=== PATIENT | male | born 1970 | race Caucasian/White ===

== ENCOUNTER → 2016-12-22 | Outpatient (CLI) | payer MEDICARE ==
--- NOTE | 2016-12-22 13:02 | P.PN ---
Progress Note - Text Patient returns for followup for chronic back pain without significant radiation to legs. Patient underwent bilateral lumbar RFA in May 2016, which provided some relief for 6-7 months' interval. Patient continues on [place] medications for pain with good relief from his PCP. Patient is also on Coumadin for A-fib. Patient denies adverse drug effects from medications. Today, pt denies new-onset weakness, bowel/bladder incontinence, or any other signs or symptoms of cauda equina syndrome. There are no signs of acute intoxication, and no indications of medication diversion or overuse. In addition to above, 13-point review of systems is also negative for chest pain , shortness of breath, changes in vision, changes in hearing, new onset weakness , abdominal pain, diarrhea, extreme fatigue, malaise, fever, skin changes, homicidal or suicidal ideation, or bowel or bladder incontinence. Vital Signs: Reviewed in EMR Gen: WDWN, AAOx3, NAD HEENT: NCAT, EOMI, hearing grossly normal Pulm: resp unlabored Abd: soft, NT, ND Neck: supple, trachea midline ROM in flexion lumbar spine: reduced ROM in extension lumbar spine: reduced Lumbar paravertebral tenderness: + Facet loading: ++ bilateral SI joint tenderness: + bilateral Jeffery's test: + bilateral Neuro: CN II-XII grossly intact, muscle strength lower extremities PRESERVED Imaging: Reviewed in EMR Assessment: 1. lumbar DDD 2. lumbar spondylosis without myelopathy 3. chronic pain syndrome Plan: 1. Explanation: Opioid and psychological risk scores were reviewed. Diagnoses , prognoses, and multiple treatment options including but not limited to physical therapy, interventional therapies, adjuvant medical therapies, narcotic medication therapies, and surgery were discussed with the patient and all questions were answered to the patient's satisfaction. 2. Opioid agreement: no opioids prescribed today 3. Counseling: The patient was counseled extensively on BODY MASS INDEX, EXERCISE. Specifically, the patient was instructed regarding the importance of obesity, and exercise in the context of both chronic pain and overall health. 4. Procedures: right vs. left lumbar RFA 5. Consultations: None 6. Investigations: None 7. Medications: none prescribed 8. Disposition: f/u for procedure as scheduled, patient must be off Coumadin and have INR checked ahead of injection PQRS measures: 1-Patient's medications are documented in the chart. 2-Tobacco use is negative 3-Patient has not had a pneumococcal vaccine. 4-Advanced care planning discussed, patient unable to give. 5-Opioid contract NOT signed with the patient as we do not prescribe him opioids. 6-Pain positive, follow-up visit or procedure scheduled 7-Patient's blood pressure measured and documented, and patient will follow up with the primary care due to hypertension. 8-Patient's weight was measured, and body mass index well ABOVE the normal limits, and counseling was done. Patient instructed to follow up with PCP. 9-Patient WAS NOT identified as an unhealthy alcohol user.
[2016-12-22 13:12] VITALS: BP 150/90; PULSE 62; RESP 18; TEMP 97.8
== END | disposition home or self-care (01) ==
LOC: PNWHC3 12:20
PROVIDERS: ATTEND Anesthesiology
DX: M51.36 Other intervertebral disc degeneration, lumbar region (principal); M47.816 Spondylosis without myelopathy or radiculopathy, lumbar region; G89.4 Chronic pain syndrome; I48.91 Unspecified atrial fibrillation; Z79.01 Long term (current) use of anticoagulants; Z79.899 Other long term (current) drug therapy; I10 Essential (primary) hypertension
CPT/HCPCS: 99211

== ENCOUNTER 2017-02-02 06:51 | Day surgery (SDC) | payer MEDICARE ==
[2017-02-01 10:28] VITALS: BMI 48.2
[~2017-02-02 06:51] MED LIST: LACTATED RINGERS 1,000 ML IV SCH
[2017-02-02] MEDS ORDERED: LACTATED RINGERS 1,000 ML IV SCH (07:00)
[2017-02-02 07:52] VITALS: TEMP 97.7
[2017-02-02] MEDS ORDERED: LIDOCAINE 1% 20 ML VIAL (10MG/ML) FOR IV START SQ ONE (08:04)
[2017-02-02 08:26] LABS: INR 1.2 (<1.1)
[2017-02-02] MEDS ORDERED: fentaNYL (PF) 50 MCG/ML 2 ML AMP ONE (08:33)
[2017-02-02] MEDS ORDERED: TRIAMCINOLONE ACETONIDE 40 MG/ML 1 ML VIAL ONE (08:33)
[2017-02-02] MEDS ORDERED: MIDAZOLAM 2 MG/2 ML VIAL ONE (08:33)
[2017-02-02] MEDS ORDERED: BUPIVACAINE (PF) 0.5% 30 ML VIAL ONE (08:33)
--- NOTE | 2017-02-02 09:08 | P.PCN ---
Date of Procedure: 02/02/17 Procedure(s) Performed: PREOPERATIVE DIAGNOSIS: 1-Lumbar Spondylosis with Facet Arthropathy without myelopathy. POSTOPERATIVE DIAGNOSIS: 1- Lumbar Spondylosis with Facet Arthropathy without myelopathy. PROCEDURES : Right Radiofrequency thermocoagulation L2-3 , L3-L4, L4-L5, and L5-S1 medial branch, with fluoroscopic guidance ANESTHESIA: IV sedation with versed 2 mg and fentaneyl 100 mcg and local infiltration with lidocaine 1% 6 ml EBL: Minimal PROCEDURE INDICATION: The patient with low back pain secondary to lumbar facet arthropathy who had more than 50% relief of her pain with previous diagnostic lumbar medial branch block with bupivacaine. PROCEDURE DESCRIPTION / TECHNIQUE: The patient was seen and identified in the preoperative area. Risks, benefits, complications, including but not limited to risk of infection ,bleeding , allergic reactions to the medications and no complete pain releife , and alternatives were discussed with the patient, the patient agreed to proceed with the procedure and signed the consent. IV was started. Vital signs remained stable throughout the procedure. Patient was taken to the OR and time out was completed. The patient was placed in the prone position on the procedure table. The lumber area was prepped and draped in the usual sterile fashion. . Vital signs were closely monitored during the procedure .IV sedation was used during the procedure to decrease patients anxiety. Using AP and then oblique fluoroscopy, the ``eye of the Hugo dog corresponding to the connection between the superior and transverse articular processes of right L2 , L3, L4, and L5 were identified, marked, and localized with 1% lidocaine. Subsequently, a 18 [id number] radiofrequency cannula with a 10-mm active tip was advanced guided by fluoroscopy to each of the ``eyes of the Hugo dog at right L2 ,L3, L4, and L5. Each site then underwent sensory testing at 50 Hz and 0 to 1 volt and motor testing at 2.5 Hz and 0 to 3 volt with local stimulation, but no radicular symptoms down the legs. Thereafter the right L2-3 , L3-4, L4-5, and L5-S1 sites underwent radiofrequency thermocoagulation at 80 degrees celsius for 90 seconds after injecting 0.5 ml of PF lidocaine 1%. then After the thermocoagulation done , 1 ml of the block solution containing Kenalog 40 mg and 3 ml of marain 0.5% was injected at the right L2-3 , L3-4 , L4-5 , and L5-S1, levels after negative aspiration of CSF and blood and with no paresthesias. Cannulas were retracted while injecting lidocaine 1% until the needle is out. At the end of the procedure, the skin was cleansed and bandages were applied. COMPLICATIONS: No acute complications. DISPOSITION / PLANS: The patient was placed in a supine position and transferred to the recovery area in a stable condition for observation and was discharged from the recovery room after meeting discharge criteria. Home discharge instructions given to the patient by the staff. The patient was reexamined prior to discharge. The patient will schedule a follow up in the clinic in 2-4 weeks.
--- NOTE | 2017-02-02 09:15 | FL ---
EXAMINATION TYPE: FL guided pain mgmt statistic DATE OF EXAM: 02/02/2017 9:08 AM HISTORY: Pain 30sec fluoro time, 3 images scanned.
[2017-02-02] MEDS ORDERED: IV FLUID CONTINUATION 700 ML IV ONE (09:26)
[2017-02-02 09:29] VITALS: PULSE 74; RESP 18
[2017-02-02 09:38] VITALS: BP 113/69
== END 2017-02-02 10:11 | disposition home or self-care (01) ==
LOC: ORPAIN 06:51
PROVIDERS: ATTEND Specialist
DX: M47.816 Spondylosis without myelopathy or radiculopathy, lumbar region (principal); M46.96 Unspecified inflammatory spondylopathy, lumbar region; I11.0 Hypertensive heart disease with heart failure; I50.9 Heart failure, unspecified; I48.91 Unspecified atrial fibrillation; J45.909 Unspecified asthma, uncomplicated; G47.33 Obstructive sleep apnea (adult) (pediatric); Z88.5 Allergy status to narcotic agent; Z88.1 Allergy status to other antibiotic agents; Z88.8 Allergy status to other drugs, medicaments and biological substances; Z86.711 Personal history of pulmonary embolism
CPT/HCPCS: 85610; 64635; 64636 ×3; 99152; 99153; J2250; J3301; J3010

== ENCOUNTER 2017-03-05 10:06 | Day surgery (SDC) | payer MEDICARE ==
[2017-03-04 13:38] VITALS: BMI 47.5
[2017-03-05] MEDS ORDERED: LIDOCAINE 1% 20 ML VIAL (10MG/ML) FOR IV START INTRADERMA ONE (10:40)
[2017-03-05 10:42] VITALS: TEMP 97.6
[2017-03-05 11:07] LABS: INR 1.1 (<1.1)
[2017-03-05 11:08] LABS: Prothrombin Time 11.2 sec (9.0-12.0)
[2017-03-05] MEDS ORDERED: TRIAMCINOLONE ACETONIDE 40 MG/ML 1 ML VIAL ONE (11:38)
[2017-03-05] MEDS ORDERED: fentaNYL (PF) 50 MCG/ML 2 ML AMP ONE (11:38)
[2017-03-05] MEDS ORDERED: BUPIVACAINE (PF) 0.5% 30 ML VIAL ONE (11:38)
[2017-03-05] MEDS ORDERED: MIDAZOLAM 2 MG/2 ML VIAL ONE (11:38)
--- NOTE | 2017-03-05 12:14 | P.PCN ---
Date of Procedure: 03/05/17 Procedure(s) Performed: PREOPERATIVE DIAGNOSIS: 1-Lumbar Spondylosis with Facet Arthropathy without myelopathy. 2- Lumber degenerative disc disease POSTOPERATIVE DIAGNOSIS: 1- Lumbar Spondylosis with Facet Arthropathy without myelopathy. 2- Lumber degenerative disc disease. PROCEDURES : Left Radiofrequency thermocoagulation, L2-3 , L3-L4, L4-L5, and L5 -S1 medial branch, with fluoroscopic guidance ANESTHESIA: IV sedation with versed 2 mg and fentaneyl 50 mcg and local infiltration with lidocaine 1% 6 ml EBL: Minimal PROCEDURE INDICATION: The patient with low back pain secondary to lumbar facet arthropathy who had more than 50% relief of her pain with previous diagnostic lumbar medial branch block with bupivacaine. PROCEDURE DESCRIPTION / TECHNIQUE: The patient was seen and identified in the preoperative area. Risks, benefits, complications, including but not limited to risk of infection ,bleeding , allergic reactions to the medications and no complete pain releife , and alternatives were discussed with the patient, the patient agreed to proceed with the procedure and signed the consent. IV was started. Vital signs remained stable throughout the procedure. Patient was taken to the OR and time out was completed. The patient was placed in the prone position on the procedure table. The lumber area was prepped and draped in the usual sterile fashion. . Vital signs were closely monitored during the procedure .IV sedation was used during the procedure to decrease patients anxiety. Using AP and then oblique fluoroscopy, the ``eye of the Hugo dog corresponding to the connection between the superior and transverse articular processes of Left L2, L3, L4, and L5 were identified, marked, and localized with 1% lidocaine. Subsequently, a 18 [id number] radiofrequency cannula with a 10-mm active tip was advanced guided by fluoroscopy to each of the ``eyes of the Hugo dog at Left L2 , L3, L4, and L5. Each site then underwent sensory testing at 50 Hz and 0 to 1 volt and motor testing at 2.5 Hz and 0 to 3 volt with local stimulation, but no radicular symptoms down the legs. Thereafter the Left L2-3 , L3-4, L4-5, and L5-S1 sites underwent radiofrequency thermocoagulation at 80 degrees celsius for 90 seconds after injecting 0.5 ml of PF lidocaine 1%. then After the thermocoagulation done , 1 ml of the block solution containing Kenalog 40 mg and 3 ml of marain 0.5% was injected at the Left L2-3 , L3-4 , L4-5 , and L5-S1, levels after negative aspiration of CSF and blood and with no paresthesias. Cannulas were retracted while injecting lidocaine 1% until the needle is out. At the end of the procedure, the skin was cleansed and bandages were applied. COMPLICATIONS: No acute complications. DISPOSITION / PLANS: The patient was placed in a supine position and transferred to the recovery area in a stable condition for observation and was discharged from the recovery room after meeting discharge criteria. Home discharge instructions given to the patient by the staff. The patient was reexamined prior to discharge. The patient will schedule a follow up in the clinic in 2-4 weeks.
[2017-03-05] MEDS ORDERED: IV FLUID CONTINUATION 1,000 ML IV ONE (12:19)
[2017-03-05 12:39] VITALS: BP 143/70; PULSE 66; RESP 18
--- NOTE | 2017-03-05 12:41 | FL ---
EXAMINATION TYPE: FL guided pain mgmt statistic DATE OF EXAM: 03/05/2017 12:14 PM HISTORY: Pain 32 sec fluoro
== END 2017-03-05 12:56 | disposition home or self-care (01) ==
LOC: ORPAIN 10:06
PROVIDERS: ATTEND Specialist
DX: M47.816 Spondylosis without myelopathy or radiculopathy, lumbar region (principal); M46.96 Unspecified inflammatory spondylopathy, lumbar region; M51.36 Other intervertebral disc degeneration, lumbar region; Z88.5 Allergy status to narcotic agent; Z88.8 Allergy status to other drugs, medicaments and biological substances
CPT/HCPCS: 85610; 64635; 64636 ×3; 99152; 99153; J2250; J3301; J3010

== ENCOUNTER 2017-10-05 08:13 | Observation (INO) | payer MEDICARE ==
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
[2017-10-05] MEDS ORDERED: ASPIRIN 81 MG PO STA (08:54)
[2017-10-05] MEDS ORDERED: NITROGLYCERIN SL TABS 0.4 MG TAB SUBLINGUAL PRN (08:54)
[2017-10-05] MEDS: METOPROLOL TARTRATE 25 MG TAB PO SCH ×2 (09:16→22:51)
[2017-10-05] MEDS: ATORVASTATIN 80 MG TAB PO SCH (09:16)
[2017-10-05] MEDS: MORPHINE SULFATE 5 MG/ML SYRINGE IV PRN (09:17)
[2017-10-05 11:07] LABS: Creatine Kinase 78 U/L (55-170)
[2017-10-05 11:17] LABS: Creatine Kinase MB 0.7 ng/mL (0.0-2.4); Troponin I <0.012 ng/mL (0.000-0.034)
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
[2017-10-05] MEDS ORDERED: ALBUTEROL NEBULIZED 2.5 MG/3 ML INHALATION PRN ×2 (18:14)
[2017-10-05 18:18] LABS: Creatine Kinase 65 U/L (55-170)
[2017-10-05 18:31] LABS: Creatine Kinase MB 0.6 ng/mL (0.0-2.4); Troponin I <0.012 ng/mL (0.000-0.034)
[2017-10-05 19:19] LABS: INR 2.4 (<1.2); Prothrombin Time 21.2 sec (9.0-12.0)
[2017-10-05] MEDS: SYMBICORT 160-4.5 MCG INHALER INHALATION SCH (20:37)
[2017-10-05] MEDS ORDERED: HYDROcodone/APAP 10-325MG 1 EACH TAB PO SCH (22:00)
[2017-10-05] MEDS: FUROSEMIDE 20 MG TAB PO SCH (22:51)
[2017-10-05] MEDS: FAMOTIDINE 20 MG TAB PO SCH (22:51)
[2017-10-05] MEDS: FLUTICASONE 50MCG/SPRAY NASAL 16GM NASAL SCH (22:51)
[2017-10-06] MEDS: MORPHINE SULFATE 5 MG/ML SYRINGE IV PRN (00:29)
[2017-10-06] MEDS: METOPROLOL TARTRATE 25 MG TAB PO SCH (00:31)
[2017-10-06] MEDS: FLUTICASONE 50MCG/SPRAY NASAL 16GM NASAL SCH (00:34)
[2017-10-06] MEDS: FAMOTIDINE 20 MG TAB PO SCH (00:34)
[2017-10-06] MEDS: FUROSEMIDE 20 MG TAB PO SCH ×2 (06:02→08:42)
[2017-10-06 07:00] LABS: Cholesterol 146 mg/dL (<200); HDL Cholesterol 38 mg/dL (40-60)
[2017-10-06] MEDS ORDERED: POTASSIUM CHLORIDE ER 20 MEQ TAB.ER PO SCH (07:30)
[2017-10-06 07:54] LABS: Prothrombin Time 18.1 sec (9.0-12.0)
[2017-10-06] MEDS: SYMBICORT 160-4.5 MCG INHALER INHALATION SCH (08:22)
[2017-10-06 08:35] VITALS: BP 156/79; PULSE 83; RESP 16; TEMP 97.4
[2017-10-06] MEDS: ATORVASTATIN 80 MG TAB PO SCH (08:42)
[2017-10-06] MEDS ORDERED: LISINOPRIL 20 MG TAB PO SCH (09:00)
[2017-10-06] MEDS ORDERED: DIGOXIN 250 MCG TAB PO SCH (09:00)
[2017-10-06] MEDS ORDERED: LORATADINE 10 MG TAB PO SCH (09:00)
[2017-10-06] MEDS ORDERED: DILTIAZEM CD 180 MG CAP.ER.24H PO SCH (09:00)
[2017-10-06] MEDS ORDERED: ASPIRIN 325 MG TAB PO SCH (09:00)
[2017-10-06] MEDS ORDERED: WARFARIN 2 MG TAB PO SCH (09:00)
--- NOTE | 2017-10-06 11:13 | P.PN ---
Subjective This is a 47-year-old male past medical history significant for paroxysmal atrial fibrillation on long-term anticoagulation with Coumadin, heart failure unknown type, COPD, dyslipidemia, hypertension, asthma, sleep apnea, pacemaker and gastroesophageal reflux disease. He follows with a plodding operator out of [place], Dr. Herron. He denies history of CAD and states he had a negative catheterization earlier this jahaira. We have been asked to see him in consultation for complaints of chest pain. He states he woke up around 0500 this morning with palpitations, chest pain, dizziness, nausea, diaphoresis and shortness of breath. The pain radiated to his left arm and shoulder momentarily also. He states these symptoms lasted approximately 1 hour and resolved on their own with no specific alleviating factors. He presented to [facility] and was transferred here for cardiac evaluation. EKG reveals a paced rhythm with underlying atrial fibrillation with controlled ventricular response. Laboratory data from [place] was reviewed, cardiac enzymes are negative x2 thus far. Current cardiac medications include coumdain, potassium 20 MEQ daily, lopressor 100 mg BID, lovastatin 40 mg daily, lisinopril 20 mg daily, lasix 20 mg BID, diltiazem 180 mg daily and digoxin 250 ncg daily. 10/06/2017 On follow up today, Mr. Spear is seen sitting up in bed in no acute distress. He denies any further episodes of chest pain or palpitations. Telemetry tracings are unremarkable and negative for an acute arrhythmia. Records have been reviewed from his primary plodding operator. He had an echocardiogram performed April 2017 that revealed a decreased LV function with EF 45% with mild MR and TR. He underwent cardiac catheterization in October 2015 that revealed widely patent coronary arteries. His official diagnosis is non-ischemic dilated cardiomyopathy. Objective - Vital Signs Vital signs: Vital Signs Temp 97.4 F L 10/06/17 08:00 Pulse 83 10/06/17 08:00 Resp 16 10/06/17 08:00 BP 156/79 10/06/17 08:00 Pulse Ox 98 10/06/17 08:23 Intake & Output 10/05/17 10/06/17 10/06/17 18:59 06:59 18:59 Intake Total 360 236 Balance 360 236 Weight 149.5 kg Intake: Oral 360 236 Other: Voiding Method Toilet Toilet Toilet # Voids 1 0 - Exam GENERAL: Well-appearing, well-nourished and in no acute distress. Obese. NECK: Supple without JVD or thyromegaly. LUNGS: Breath sounds clear to auscultation bilaterally. Respiration equal and unlabored. No wheezes, rales or rhonchi. HEART: Regular rate and rhythm with systolic ejection murmur at the base, no rubs or gallops. S1 and S2 heard. EXTREMITIES: Normal range of motion, no edema. No clubbing or cyanosis. Peripheral pulses intact and strong. - Labs Labs: Abnormal Lab Results - Last 24 Hours (Table) 10/05/17 10/06/17 10/06/17 Range/Units 10:21 06:10 06:10 PT 21.2 H 18.1 H (9.0-12.0) sec INR 2.4 H 2.0 H (<1.2) HDL Cholesterol 38 L (40-60) mg/dL Assessment and Plan Assessment: ASSESSMENT 1. Chest pain with palpitations, atypical for an acute coronary event 2. History of persistent atrial fibrillation on long-term anticoagulation 3. Pacemaker dependent 4. Heart failure with decreased EF, 45% 5. COPD 6. Sleep apnea 7. Diabetes mellitus 8. Hypertension 9. Non-ischemic dilated cardiomyopathy PLAN An acute coronary event has been ruled out with negative cardiac enzymes. From a cardiac perspective Mr. Spear is stable. He can follow up with his primary plodding operator in 2-3 weeks. Nurse Practitioner note has been reviewed, I agree with a documented findings and plan of care. Patient was seen and examined.
[2017-10-06] MEDS ORDERED: HYDROcodone/APAP 10-325MG 1 EACH TAB PO PRN (12:02)
[2017-10-06] MEDS ORDERED: METOPROLOL TARTRATE 50 MG TAB PO SCH (21:00)
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
[2017-10-07] MEDS ORDERED: ATORVASTATIN 10 MG TAB PO SCH (21:00)
--- NOTE | 2017-10-20 18:14 | CDI ---
Dr. Monge, Please specificy if compression fracture of the L2-3 and L4 is traumatic, pathological or non-traumatic. Also, please specifiy if this is an initial episode of care of subsequent encounter. Thank you, Solange Stringer give to dr nerusu. Saleem PIERCE
--- NOTE | 2017-11-03 09:19 | CDI ---
Outpatient Documentation Clarification Form Date: 11-03-17 CDS/Environmental Scientist Name: Sabrina Fontenot Phone: If you have question, contact Isamar Ventura, Construction Economist at [phone] M-F 8:30 am to 6pm. Patient Name: Brian Spear Admit Date:10-05-17 Discharge Date: 10-06-17 ATTENTION: The Clinical Documentation Specialists (CDI) and [facility] Coding Staff appreciate your assistance in clarifying documentation. Please respond to the clarification below the line at the bottom and electronically sign. The CDI & [facility] Coding staff will review the response and follow-up if needed. Please note: Queries are made part of the Legal Health Record. If you have any questions, please contact the author of this message via ITS or call the Construction Economist. Dr. Quinonez, Please specificy if compression fracture of the L2-3 and L4 is traumatic, pathological or non-traumatic. Also, please specifiy if this is an initial episode of care of subsequent encounter. Thank you, Sabrina Fontenot SENIOR PROCUREMENT SPECIALIST compression fracture of the L2-3 and L4- etiology unknown. No imaging available. MTDD
== END 2017-10-06 14:49 | disposition home or self-care (01) ==
LOC: EC 08:13 → 3OBS 08:54
PROVIDERS: ADMIT Hospitalist; ATTEND Hospitalist
DX: I48.2 Chronic atrial fibrillation (principal); I48.1 Persistent atrial fibrillation; I48.0 Paroxysmal atrial fibrillation; I20.9 Angina pectoris, unspecified; Z68.41 Body mass index [BMI] 40.0-44.9, adult; E66.01 Morbid (severe) obesity due to excess calories; Z95.0 Presence of cardiac pacemaker; I50.22 Chronic systolic (congestive) heart failure; I11.0 Hypertensive heart disease with heart failure; I42.0 Dilated cardiomyopathy; J44.9 Chronic obstructive pulmonary disease, unspecified; G47.33 Obstructive sleep apnea (adult) (pediatric); Z99.89 Dependence on other enabling machines and devices; E11.40 Type 2 diabetes mellitus with diabetic neuropathy, unspecified; E78.5 Hyperlipidemia, unspecified; G89.29 Other chronic pain; M54.5 Low back pain; Z86.711 Personal history of pulmonary embolism; K21.9 Gastro-esophageal reflux disease without esophagitis; F41.9 Anxiety disorder, unspecified; Z79.01 Long term (current) use of anticoagulants; Z79.899 Other long term (current) drug therapy; Z88.1 Allergy status to other antibiotic agents; Z88.5 Allergy status to narcotic agent; Z88.8 Allergy status to other drugs, medicaments and biological substances; Z79.51 Long term (current) use of inhaled steroids; M19.90 Unspecified osteoarthritis, unspecified site; Z86.14 Personal history of Methicillin resistant Staphylococcus aureus infection; Z79.891 Long term (current) use of opiate analgesic; Z82.49 Family history of ischemic heart disease and other diseases of the circulatory system
CPT/HCPCS: 93005 ×2; 96376; 96374; 99285; 94640 ×3; 94760; 80061; 82550; 82553; 80162; 84484; 85610 ×2; G0378 ×2; J2274 ×2

== ENCOUNTER 2021-04-30 10:34 | Day surgery (SDC) | payer MEDICARE ==
[~2021-04-30 10:34] MED LIST changes: +ALBUTEROL NEB (CONC) 2.5 MG/0.5 ML INHALATION ONE; +LIDOCAINE 1% (10MG/ML) FOR IV START INTRADERMA PRN; +LIDOCAINE 2% (PF) 20 MG/ML 5 ML VIAL INHALATION ONE; +LIDOCAINE VISCOUS 300 MG/15 ML CUP MUCOUS MEM ONE
[2021-04-30 12:27] LABS: Glucose,Whole Blood 120 mg/dL (75-99)
[2021-04-30 12:40] VITALS: TEMP 97.1
[2021-04-30] MEDS ORDERED: LIDOCAINE 1% INJ 10MG/ML (20 ML MDV) ONE (13:12)
[2021-04-30] MEDS ORDERED: PROPOFOL 10 MG/ML 20 ML VIAL IV ONE (13:12)
[2021-04-30] MEDS ORDERED: KETAMINE 10 MG/ML 20 ML VIAL ONE (13:12)
[2021-04-30] MEDS ORDERED: MIDAZOLAM 2 MG/2 ML VIAL ONE (13:12)
--- NOTE | 2021-04-30 13:42 | P.PCN ---
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 Note that the patient had prolonged ventilator dependent respiratory failure and tracheostomy tube insertion which was the culprit for his tracheostenosis The patient presented to the office with of worsening shortness of breath and he was concerned that he was having a purulent tracheal stenosis. For that reason, the patient was scheduled to undergo this bronchoscopy and upper airway inspection. The patient was given a combination of propofol and ketamine for sedation. After achieving adequate sedation, the flexible bronchoscope was inse rted through the left nostril was advanced into the upper airway. Examination of the pharynx included oropharynx, and this was within normal limits. Following that, the bronchoscope was lasted larynx. There was dynamic collapse stability of the laryngeal airway along with adipose tissue buildup circumferentially throughout the laryngeal wall consistent with a diagnosis of obstructive sleep apnea. Epiglottis was identified. Vallecula and arytenoids were within normal limits. Vocal cord function mobility was within normal limits with normal abduction and adduction. A total of 5 mL of 1% lidocaine was applied to the vocal cords and following that the bronchoscope was advanced into the subglottic tracheal area. The cricoid was not adequately visualized. The area immediately in the subglottic trachea was noted to be stenotic. There was a significant tracheal fibrotic band of tissue growing anteriorly between 9 PM and 3 AM and this was causing some anatomic distortion and tortuosity of the subglottic trachea. The stenosis was estimated to be around 10 mm in size. I was easily able to push my bronchoscope through the stenotic segment knowing that my bronchoscope diameter was 5 mm in size. At that point and the bronchoscope through the stenotic segment, the patient had no stridor. He was able to breathe comfortably. I estimated his airway to be around 10 mm in size at least. There was limited tracheobronchomalacia throughout the patient's airways and this was noted as the patient dynamic collapse of the airways with inspiratory and expiratory maneuvers. Minimal respiratory secretions visualized. After reviewing an accurate examination of the upper airway, a video tape of the airway involving the upper trachea was taken and this will be shared with interventional pulmonology program at [facility]. The bronchoscope was removed and the patient was transferred to recovery in stable condition Postoperative diagnosis 1 non-critical subglottic tracheal stenosis 2 bronchomalacia. 3 previous history of tracheostomy 4 history of bronchial asthma 5 obstructive sleep apnea
[2021-04-30 14:05] VITALS: RESP 18
[2021-04-30 14:50] VITALS: BP 139/79; PULSE 81
== END 2021-04-30 15:25 | disposition home or self-care (01) ==
LOC: ORWHC2ENDO 10:34
PROVIDERS: ATTEND Internal Medicine Critical Care Medicine
DX: J39.8 Other specified diseases of upper respiratory tract (principal); G47.33 Obstructive sleep apnea (adult) (pediatric); E66.01 Morbid (severe) obesity due to excess calories; J98.09 Other diseases of bronchus, not elsewhere classified; Z88.6 Allergy status to analgesic agent; Z88.1 Allergy status to other antibiotic agents; Z88.8 Allergy status to other drugs, medicaments and biological substances; Z86.711 Personal history of pulmonary embolism; I50.20 Unspecified systolic (congestive) heart failure; I25.10 Atherosclerotic heart disease of native coronary artery without angina pectoris; Z95.0 Presence of cardiac pacemaker; Z86.718 Personal history of other venous thrombosis and embolism; J44.9 Chronic obstructive pulmonary disease, unspecified; J45.40 Moderate persistent asthma, uncomplicated; G89.29 Other chronic pain; I48.20 Chronic atrial fibrillation, unspecified; I11.0 Hypertensive heart disease with heart failure; I25.2 Old myocardial infarction; Z79.899 Other long term (current) drug therapy
CPT/HCPCS: 31622; J2250; J2001; J2704; 31624

== ENCOUNTER 2023-12-07 15:03 | Day surgery (SDC) | payer MEDICARE, OTHER ==
[~2023-12-07 15:03] MED LIST changes: -ALBUTEROL NEB (CONC) 2.5 MG/0.5 ML INHALATION ONE; -LACTATED RINGERS 1,000 ML IV SCH; -LIDOCAINE 1% (10MG/ML) FOR IV START INTRADERMA PRN; -LIDOCAINE 2% (PF) 20 MG/ML 5 ML VIAL INHALATION ONE; -LIDOCAINE VISCOUS 300 MG/15 ML CUP MUCOUS MEM ONE; +SODIUM CHLORIDE 0.9% 1,000 ML IV SCH
[2023-12-07] MEDS: SODIUM CHLORIDE 0.9% 500 ML 500 ML IV ONE (15:39)
[2023-12-07 15:59] LABS: Glucose,Whole Blood 205 mg/dL (70-110)
[2023-12-07] MEDS: INSULIN ASPART (NovoLOG) 100 UNIT/ML VIAL SQ ONE (16:03)
[2023-12-07 16:14] VITALS: BP 160/63; PULSE 61; RESP 18; TEMP 99
[2023-12-07 16:20] LABS: ALT 24 U/L (4-49); AST 23 U/L (17-59); African American GFR (CKD) >90 (>60 ml/min/1.73 sqM); Alkaline Phosphatase 117 U/L (38-126); Anion Gap 6 mmol/L; Blood Urea Nitrogen 20 mg/dL (9-20); Calcium 9.2 mg/dL (8.4-10.2); Carbon Dioxide 25 mmol/L (22-30); Chloride 107 mmol/L (98-107); Glucose 223 mg/dL (74-99); Non-African American GFR(CKD) >90 (>60 ml/min/1.73 sqM); Potassium 4.3 mmol/L (3.5-5.1); Sodium 138 mmol/L (137-145); Total Bilirubin 0.4 mg/dL (0.2-1.3); Total Protein 7.2 g/dL (6.3-8.2)
[2023-12-07 16:28] LABS: INR 1.5 (<1.2); Prothrombin Time 15.9 sec (10.0-12.5)
[2023-12-07] MEDS: IOPAMIDOL-370 100ML BTL IVP ONE (19:02)
--- NOTE | 2023-12-07 19:25 | P.EPPROC ---
- EP Procedure Note Electrophysiology Procedure Note: Diagnosis History of atrial fibrillation with RVR and tachycardia mediated cardiomyopathy History of ICD implanted in [place] He received multiple shocks possibly on account of A-fib with RVR The ICD generator was explanted AV node modification was performed subsequently at [place] He is 100 paced in the RV This is resulted in gradual reduction in LV systolic function with global hypokinesis He has normal coronary arteries with gradually worsening heart failure symptoms Procedures performed 1. Cinefluoroscopy of the leads was performed The patient has FOUR leads in the heart. An atrial lead in the right atrial appendage A dual coil ICD lead in the RV apex And LV lead in the anterior vein at its base Septal RV lead Procedure #2: Left upper extremity venogram performed 15 cc IV dye injected. Patent left subclavian and axillary venous system Plan This patient needs a biventricular system His LV lead probably is nonfunctional and is at the base of the anterior vein He has an RV septal lead and is pacing via this lead 100% resulting in progressive cardiomyopathy and heart failure symptoms I would recommend implantation of a left bundle lead However this would mean a total of 5 leads in his heart, 3 of which will be crossing his tricuspid valve I would recommend laser lead extraction of the RV septal lead and the LV pacing leads followed by implantation of a left bundle pacing lead and implantation of a biventricular ICD/pacing system This would minimize the number of intracardiac leads as well as minimize the number of leads crossing the tricuspid valve
== END 2023-12-07 19:37 | disposition home or self-care (01) ==
LOC: CATHEP 15:03
PROVIDERS: ATTEND Internal Medicine Clinical Cardiac Electrophysiology
DX: I48.19 Other persistent atrial fibrillation (principal); E11.9 Type 2 diabetes mellitus without complications; G47.33 Obstructive sleep apnea (adult) (pediatric); I11.0 Hypertensive heart disease with heart failure; I50.9 Heart failure, unspecified; E78.5 Hyperlipidemia, unspecified; Z79.84 Long term (current) use of oral hypoglycemic drugs; Z79.899 Other long term (current) drug therapy; Z82.49 Family history of ischemic heart disease and other diseases of the circulatory system
CPT/HCPCS: 36005; 75820; 80053; 84443; 85610; Q9967